=== PATIENT | female | born 1980 | race Caucasian/White ===

== ENCOUNTER 2017-12-24 06:08 | Day surgery (SDC) | payer BC ==
[~2017-12-24 06:08] MED LIST: Buffered Lidocaine 0.9% SYRIN* 5 ML/SYR SYRINGE INTRADERM ONE; Dexamethasone IV* 4 MG/ML 1 ML (4 MG) IV SLOW PU ONE; Famotidine IV* 10 MG/ML 2 ML (20 mg) IV ONE
[2017-12-24] MEDS ORDERED: Famotidine IV* 10 MG/ML 2 ML (20 mg) ONE (06:45)
[2017-12-24] MEDS ORDERED: Dexamethasone IV* 4 MG/ML 1 ML (4 MG) ONE (06:45)
[2017-12-24] MEDS ORDERED: Propofol* 10 MG/ML 20 ML BTL IV PUSH ONE (07:15)
[2017-12-24] MEDS ORDERED: Ondansetron INJ* 2 MG/ML VIAL ONE (07:15)
[2017-12-24] MEDS ORDERED: Lidocaine 2% PF * 5 ML VIAL ONE (07:15)
[2017-12-24] MEDS ORDERED: Ketorolac INJ* 30 MG/ML 1 ML VIAL ONE (07:15)
[2017-12-24] MEDS ORDERED: fentaNYL* 50 MCG/ML 2 ML VIAL (100 MCG VIAL) ONE ×2 (07:15→08:36)
[2017-12-24] MEDS ORDERED: Silver Nitrate/Potassium Nitr* 1 EA STICK ONE (07:43)
[2017-12-24] MEDS ORDERED: Naloxone* 0.4 MG/ML 1 ML VIAL IV PRN (08:13)
[2017-12-24] MEDS ORDERED: DiMENhydriNATE IV* 50 MG/ML VIAL IV PUSH PRN (08:13)
[2017-12-24] MEDS ORDERED: fentaNYL* 50 MCG/ML 2 ML VIAL (100 MCG VIAL) IV PRN (08:13)
[2017-12-24] MEDS ORDERED: oxyCODONE/Acetamin 5/325 MG* TAB ONE (08:36)
[2017-12-24 09:29] VITALS: BP 108/68
--- NOTE | 2017-12-25 15:29 | OP ---
DATE OF OPERATION: 12/24/17 - [facility] DATE OF : 84 SURGEON: Hien Gallardo MD. ANESTHESIOLOGIST: Dr. Coles. ANESTHESIA: General. PRE-OP DIAGNOSIS: Abnormal uterine bleeding and likely endometrial polyp. POST-OP DIAGNOSIS: Abnormal uterine bleeding and endometrial polyp. OPERATIVE PROCEDURE: Hysteroscopy, dilatation and curettage, and polypectomy with MyoSure. ESTIMATED BLOOD LOSS: 25 cc. URINE OUTPUT: 240 cc. IV FLUIDS: 800 cc lactated Ringers. HYSTEROSCOPIC DEFICIT: 200 cc of normal saline. MATERIALS TO LAB: Endometrial curettings and polyp fragments. INDICATIONS: This patient was a 37-year-old 0, who presented to the office recently with complaint of persistent abnormal uterine bleeding which started less than a year ago. A pelvic ultrasound was performed and noted a fleshy mass within the endometrial cavity which appeared consistent with a polyp. Considering these findings the patient was counselled and consented for hysteroscopy with removal of the polyp as indicated. FINDINGS: Fairly large endometrial polyp that extended from the uterine cavity down to the internal os of the cervix. The remainder of the uterus cavity appeared normal. COMPLICATIONS: None. DESCRIPTION OF PROCEDURE: The risks, benefits, and alternatives were described to the patient and informed consent was obtained. The patient was taken to the operating room with IV running where general anesthesia was induced and found to be adequate. The patient was prepped and draped in normal sterile fashion in the high lithotomy position and Angel stirrups. A time-out was performed. The bladder was emptied. A bivalve speculum was placed in the vagina and a single- tooth tenaculum was placed in the anterior cervix. The uterus was significantly retroverted, so the uterus was sounded to about 7 cm. The cervix was then gently dilated using Juan's dilators to a size 27. A MyoSure hysteroscope was then prepared and placed through the cervix into the uterine cavity with saline running. The endometrial polyp was already visible on entry into the cervical canal and it was large enough that it was difficult to see past the polyp until it was removed. A regular sized MyoSure device was then prepared and this was placed into the scope without difficulty. Under direct visualization, the polyp was then resected using the MyoSure. The polyp was resected all the way to the base which was within the uterine cavity. The uterine cavity was then carefully inspected and there was no visible evidence of other abnormalities present. The hysteroscope was then removed. A curettage was performed using a medium banjo curette and the curettings were collected on Telfa. The tenaculum was then removed from the cervix and there was good hemostasis present. The patient was then returned to the supine position and allowed to awaken. The patient tolerated the procedure well. Sponge, lap, and needles counts were correct x2. [id number]/[facility] #: [id number] [facility]
== END 2017-12-24 09:52 | disposition home or self-care (01) ==
LOC: OR 06:08
PROVIDERS: ATTEND Obstetrics & Gynecology
DX: N93.9 Abnormal uterine and vaginal bleeding, unspecified (principal); N84.0 Polyp of corpus uteri
CPT/HCPCS: 81025; 88305; A9270-GY; J1100; J1885; J2405; J2704; J3010